=== PATIENT | female | born 1955 | race Caucasian/White ===

== ENCOUNTER 2023-04-07 21:38 | Emergency (ER) | payer BC, OTHER ==
--- OUTSIDE RECORDS SUMMARY | 2023-04-07 21:41 | XMS REPORT | Continuity of Care Document ---
:1955 Author Organization [facility] t Address [address] [place] [address] Care Team Providers Name Role Phone Unavailable Unavailable Unavailable Problems Condition Condition Condition Status Onset Resolution Last Treating Co mments Source Name Details Category Date Date Treatment Clinician Date Hyperlipid Hyperlipid Problem Active C ommon emia, emia, [facility] unspecifie unspecifie - [facility] hyperlipid hyperlipid Dhara ke emia type emia type [facility] Acquired Acquired Diagnosis Active Com mon hypothyroi hypothyroi Sp terell dism dism [facility] Stroke Stroke Problem Active Common [facility] History of History of Diagnosis Active Common CVA CVA [facility] (cerebrova (cerebrova - [facility] scular scular [facility] accident) accident) [facility] History of History of Problem Active C ommon CA CA [facility] (myocardia (myocardia - [facility] l [facility] infarction infarction [facility] ) ) [facility] Coronary Coronary Problem Active Commo n artery artery Spirit disease disease - [facility] involving involving [facility] coronary coronary Medica l artery of artery of Cent [facility] heart without without angina angina pectoris pectoris Heart Heart Problem Active Common disease disease [facility] High High Problem Active Common cholestero cholestero Sp terell l l - [place] [facility] Abnormal Abnormal Problem Active Commo n CBC CBC [facility] Mixed Mixed Diagnosis Active Common hyperlipid hyperlipid Sp terell emia emia [facility] Hyperglyce Hyperglyce Problem Active C ommon martínez martínez [facility] Uncontroll Uncontroll Diagnosis Active Common ed type 2 ed type 2 Spir it diabetes diabetes - CHI mellitus mellitus St with with [facility] hyperglyce hyperglyce Me dical [facility] Allergies, Adverse Reactions, Alerts Allergy Allergy Status Severity Reaction(s) Onset Inactive Treating Comm ents Source Name Type Date Date Clinician Hydrocod Adverse Active Info Not Commo n one-Acet Reaction Available Spi rit aminophe - [facility] n [facility] Medications Ordered Filled Start Stop Current Ordering Indication Dosage Frequency Signature Comments Components Source Medication Medication Date Date Medication? Clinician (SIG) Name Name Lancets Lancets Yes [facility] as Common - [facility] directed Spirit 00:00: (dispense - [facility] 00 lancets [facility] to Medical insurance) Center Glucose Glucose Yes [facility] as Common testing testing - [facility] directed Spirit strips strips 00:00: (dispense - CH I [address] [facility] to Center insurance) Blood Blood Yes [facility] as Common Glucose Glucose - [place]ender directed Spirit Monitor Monitor 00:00: (DISPENSE - [facility] 00 BLOOD GLUCOSE [facility] MONITOR [facility] TO INSURANCE) Levothyroxi Levothyroxi 2018- Yes Genesis 1 tablet Common ne Sodium ne Sodium 0-07 Millender on an Spirit 00:00: empty - [facility] stomach in [facility] Aspirin Aspirin Yes Genesis 1 tablet Comm on Millender [facility] Metoprolol Metoprolol Yes Genesis 1/2 tablet Common Tartrate [facility]artrate [facility] Flaxseed Flaxseed Yes Genesis as Common Oil Oil [facility] directed [facility] Atorvastati Atorvastati Yes Genesis 1 tablet Common n Calcium n Calcium [facility] Lisinopril Lisinopril Yes Genesis 1/2 tablet Common [facility] Clopidogrel Clopidogrel Yes Genesis 1 tablet Common Bisulfate Bisulfate [facility] Fish Oil Fish Oil Yes Genesis 2 capsules Common [facility] Immunizations Ordered Immunization Filled Immunization Date Status Commen ts Source Name Name Flucelvax - single Flucelvax - single 2019-07-29 Completed Common Spirit dose syringe dose syringe 00:00:00 [facility] Flucelvax Flucelvax 2018-07-24 Completed Common [facility] 00:00:00 [facility] Procedures This patient has no known procedures. Encounters Start End Encounter Admission Attending Care Care Encounter Source Date/Time Date/Time Type Type Clinicians Facility Department ID 2020-03-17 2020-03-17 [id number] Common 09:00:00 09:00:[address] [facility] 2020-01-09 2020-01-09 [facility] [id number] Common 13:43:00 13:43:[address] [facility] 2019-08-10 2019-08-10 [facility] [id number] Common 17:14:00 17:14:[address] [facility] 2019-07-29 2019-07-29 [facility] [id number] Common 08:40:00 08:40:[address] [facility] 2019-02-11 2019-02-11 [facility] [id number] Common 09:01:00 09:01:[address] [facility] 2019-02-07 2019-02-07 [facility] [id number] Common 08:20:00 08:20:[address] [facility] 2019-01-28 2019-01-28 [facility] [id number] Common 13:42:00 13:42:[address] [facility] 2019-01-21 2019-01-21 [facility] [id number] Common 08:20:00 08:20:[address] [facility] 2018-08-09 2018-08-09 [facility] [id number] Common 09:30:00 09:30:[address] [facility] 2018-07-27 2018-07-27 [facility] [id number] Common 23:33:00 23:33:[address] [facility] 2018-07-24 2018-07-24 Outpatient Clovis Dsouza [id number] Common 09:45:00 09:45:00 [facility] Results This patient has no known results.
[2023-04-07 22:23] LABS: Absolute Lymphocytes (CBC) 2.4 K/uL (0.7-4.9); Hematocrit 46.9 % (36.0-45.0); Lymphocytes % 36.8 % (15.3-44.8); MCV 89.7 fL (80-100); MPV 7.5 fL (7.6-11.3); RBC Red Blood Cell Count 5.23 M/uL (3.86-4.86)
[2023-04-07 22:24] LABS: Protime INR 0.89
[2023-04-07 22:53] LABS: ALT/SGPT 35 U/L (13-56); AST/SGOT 18 U/L (15-37); Albumin 3.5 g/dL (3.4-5.0); Alkaline Phosphatase 111 U/L (45-117); BUN Blood Urea Nitrogen 14 mg/dL (7-18); Bicarbonate 25 mEq/L (21-32); Bilirubin Total 0.4 mg/dL (0.2-1.0); Glomerular Filtration Rate 55 ml/min (=/>90); Glucose Level 282 mg/dL (74-106); Magnesium 2.2 mg/dL (1.6-2.4); NT PRO-BNP 54 pg/mL (<125); Potassium 3.7 mEq/L (3.5-5.1); Protein, Total 6.8 g/dL (6.4-8.2); Sodium Level 137 mEq/L (136-145); Troponin High Sensitivity 6.4 pg/mL (<58.9)
[2023-04-07 22:58] LABS: Bilirubin Direct < 0.1 mg/dL (0-0.2); Bilirubin Indirect, Calculated ND mg/dL (0.2-0.8)
--- NOTE | 2023-04-08 01:59 | EDPHYS ---
Physician Documentation [facility] Name: Janice Ryan Age: 67 yrs Sex: Female : 1955 Arrival Date: 04/07/2023 Time: 21:38 Bed 5 Private MD: ED Physician Darrian Salinas HPI: 04/07 22:04 This 67 yrs old Other Female presents to ER via Ambulatory with complaints of Chest sp4 Pain. 04/08 01:51 Very pleasant patient checked in with initial complaint of a chest pain. Patient is sp4 then communicated that she had left upper quadrant transient pain associated with some anxiety. Pain has resolved prior to arrival to the emergency room. Initial EKG unremarkable. Patient denied any other symptoms such as additional abdominal pain, shortness of breath or vomiting.. Patient has risk factors of type 2 diabetes mellitus, hypertensive disorder, hypothyroidism, also coronary artery disease with LAD stent in the past, History of CVA as well. Historical: - Allergies: 04/07 21:57 SHELLFISH; as6 21:57 Codeine; as6 - PMHx: 21:57 Hypothyroidism; Hypertensive disorder; as6 - PSHx: 21:57 Stented artery; section; as6 - Immunization history:: Client reports receiving the 2nd dose of the Covid vaccine, moderna. - Social history:: Smoking status: Patient denies any tobacco usage or history of. - Family history:: not pertinent. ROS: 04/08 01:51 Constitutional: Negative for fever, chills, and weight loss, Eyes: Negative for injury, sp4 pain, redness, and discharge, ENT: Negative for injury, pain, and discharge, Neck: Negative for injury, pain, and swelling, Cardiovascular: Negative for palpitations, and edema, positive for left lower chest pain Respiratory: Negative for shortness of breath, cough, wheezing, and pleuritic chest pain, Abdomen/GI: Negative for nausea, vomiting, diarrhea, and constipation, positive for left upper quadrant abdominal pain also left lower chest pain Back: Negative for injury and pain, : Negative for injury, bleeding, discharge, and swelling, MS/Extremity: Negative for injury and deformity, Skin: Negative for injury, rash, and discoloration, Neuro: Negative for headache, weakness, numbness, tingling, and seizure, Psych: Negative for depression, anxiety, Allergy/Immunology: Negative for hives, rash, and allergies Endocrine: Negative for neck swelling, polydipsia, polyuria, polyphagia, and weight changes Hematologic/Lymphatic: Negative for swollen nodes, abnormal bleeding, and unusual bruising Exam: 04/07 22:08 ECG was reviewed by the Attending Physician. 22:05 NSR at 73 bpm sp4 04/08 01:51 Constitutional: This is a well developed, well nourished patient who is awake, alert, sp4 and in no acute distress. Head/Face: Normocephalic, atraumatic. Eyes: Pupils equal round and reactive to light, extra-ocular motions intact. Lids and lashes normal. Conjunctiva and sclera are not injected. Cornea within normal limits. Periorbital areas with no swelling, redness, or edema. ENT: Nares patent. No nasal discharge, no septal abnormalities noted. Tympanic membranes are normal and external auditory canals are clear. Oropharynx with no redness, swelling, or masses, exudates, or evidence of obstruction, uvula midline. Mucous membranes moist. Neck: Trachea midline, no thyromegaly or masses palpated, and no cervical lymphadenopathy. Supple, full range of motion without nuchal rigidity, or vertebral point tenderness. Chest/axilla: Normal chest wall appearance and motion. Nontender with no deformity. No lesions are appreciated. Cardiovascular: Regular rate and rhythm with a normal S1 and S2. No gallops, murmurs, or rubs. Normal PMI, no JVD. No pulse deficits. Respiratory: Lungs have equal breath sounds bilaterally, clear to auscultation and percussion. No rales, rhonchi or wheezes noted. No increased work of breathing, no retractions or nasal flaring. Abdomen/GI: Soft, non-tender, with normal bowel sounds. No distension or tympany. No guarding or rebound. No evidence of tenderness throughout. Back: No spinal tenderness. No costovertebral tenderness. Skin: Warm, dry with normal turgor. Normal color with no rashes, no lesions, and no evidence of cellulitis. MS/ Extremity: Pulses equal, no cyanosis. Neurovascular intact. Full, normal range of motion. Neuro: Awake and alert, GCS 15, oriented to person, place, time, and situation. Cranial nerves II-XII grossly intact. Motor strength 5/5 in all extremities. Sensory grossly intact. Psych: Awake, alert, with orientation to person, place and time. Behavior, mood, and affect are within normal limits Vital Signs: 04/07 21:53 BP 157 / 92; Pulse 73; Resp 18 S; Temp 97.9(TE); Pulse Ox 100% on R/A; Weight 72.57 kg as6 (R); Height 5 ft. 6 in. (R); Pain 0/10; 23:30 BP 153 / 86; Pulse 64; Resp 16 S; Pulse Ox 100% on R/A; ha1 04/08 00:30 BP 155 / 87; Pulse 61; Resp 16 S; Pulse Ox 97% on R/A; ha1 01:30 BP 134 / 67; Pulse 60; Resp 16 S; Pulse Ox 97% on R/A; ha1 02:10 BP 131 / 85; Pulse 59; Resp 19 S; Pulse Ox 97% on R/A; ha1 04/07 21:53 Body Mass Index 25.82 (72.57 kg, 167.64 cm) as6 04/07 21:53 Pain Scale: Adult as6 MDM: 04/07 22:04 Patient medically screened. sp4 04/08 01:51 Differential diagnosis: abnormal EKG, acute pericarditis, anxiety, chest wall pain, sp4 cholecystitis, Cholelithiasis esophagitis, pleurisy, pneumonia. HEART Score: History: Slightly Suspicious (0), ECG: Normal (0), Age: > or = 65 years (2), Risk Factors: > or = 3 Risk factors for atherosclerotic disease (2), Troponin: < or = 1 x Normal Limit (0), Total Score = 4. The patient was not given aspirin in the Emergency Department. Patient reports taking aspirin within the past 24 hours. Data reviewed: vital signs, nurses notes, old medical records, lab test result(s), cardiac enzymes, CBC, electrolytes, hepatic panel, EKG, radiologic studies, plain films. ED course: Patient's pain resolved prior to arrival to the emergency room, patient does have significant risk factors and troponin was repeated and is negative. Overall work-up positive for elevated blood sugar at 282 otherwise normal work-up. Patient at this time stable for discharge with copies of her work-up. Advised follow-up with primary MD and diabetic diet. 04/07 21:58 Order name: Basic Metabolic Panel; Complete Time: 23:38 04/07 21:58 Order name: CBC with Diff; Complete Time: 23:38 04/07 21:58 Order name: LFT's; Complete Time: 23:38 04/07 21:58 Order name: Magnesium; Complete Time: 23:38 04/07 21:58 Order name: NT PRO-BNP; Complete Time: 23:38 04/07 21:58 Order name: PT-INR; Complete Time: 23:38 04/07 21:58 Order name: Troponin HS; Complete Time: 23:38 04/07 23:50 Order name: Troponin High Sensitivity: collect at 1:15 AM 04/08 please; Complete Time: sb4 01:44 04/07 21:58 Order name: XRAY Chest (1 view) 04/07 21:58 Order name: EKG; Complete Time: 21:59 04/07 21:58 Order name: Cardiac monitoring; Complete Time: 01:35 04/07 21:58 Order name: EKG - Nurse/Tech; Complete Time: 22:06 04/07 21:58 Order name: IV Saline Lock; Complete Time: 22:11 04/07 21:58 Order name: Labs collected and sent; Complete Time: 22:11 04/07 21:58 Order name: O2 Per Protocol; Complete Time: 01:35 04/07 21:58 Order name: O2 Sat Monitoring; Complete Time: 01:35 EC/16 22:08 Rate is 73 beats/min. Rhythm is regular, Normal Sinus Rhythm. QRS [place] is Normal. ND sp4 interval is normal. QRS interval is normal. QT interval is normal. T waves are Normal. No ST changes noted. Clinical impression: Normal ECG. Interpreted by me. Administered Medications: No medications were administered Disposition Summary: 04/08/23 01:58 Discharge Ordered Location: Home sp4 Problem: new sp4 Symptoms: are resolved sp4 Condition: Stable sp4 Diagnosis - Chest pain, unspecified sp4 - Noncardiac chest pain sp4 - Diabetes mellitus type 2 with elevated blood sugar sp4 Followup: sp4 - With: Private Physician - When: 7 - 10 days - Reason: Recheck today's complaints Discharge Instructions: - Discharge Summary Sheet sp4 - Nonspecific Chest Pain, Adult sp4 Signatures: Dispatcher [employer] Jamal Alcala RN RN as6 Darrian Salinas MD MD sp4
--- NOTE | 2023-04-08 01:59 | ER ---
Nurse's Notes [facility] Name: Janice Ryan Age: 67 yrs Sex: Female : 1955 Arrival Date: 04/07/2023 Time: 21:38 Bed 5 Private MD: Diagnosis: Chest pain, unspecified;Noncardiac chest pain;Diabetes mellitus type 2 with elevated blood sugar Presentation: 04/07 21:53 Chief complaint: Patient states: "my blood pressure was high at home and I had chest as6 pain" pt denies chest pain at this time. Coronavirus screen: At this time, the client does not indicate any symptoms associated with coronavirus-19. Ebola Screen: No symptoms or risks identified at this time. Initial Sepsis Screen: Does the patient meet any 2 criteria? No. Patient's initial sepsis screen is negative. Does the patient have a suspected source of infection? No. Patient's initial sepsis screen is negative. Risk Assessment: Do you want to hurt yourself or someone else? Patient reports no desire to harm self or others. Onset of symptoms was April 07, 2023. 21:53 Method Of Arrival: Ambulatory as6 21:53 Acuity: PAOLA 3 as6 Triage Assessment: 21:58 General: Appears in no apparent distress. Behavior is calm, cooperative. Pain: Denies as6 pain. Historical: - Allergies: 21:57 SHELLFISH; as6 21:57 Codeine; as6 - PMHx: 21:57 Hypothyroidism; Hypertensive disorder; as6 - PSHx: 21:57 Stented artery; section; as6 - Immunization history:: Client reports receiving the 2nd dose of the Covid vaccine, moderna. - Social history:: Smoking status: Patient denies any tobacco usage or history of. - Family history:: not pertinent. Screenin:[facility] ED Fall Risk Assessment (Adult) History of falling in the last 3 months, ha1 including since admission No falls in past 3 months (0 pts) Confusion or Disorientation No (0 pts) Intoxicated or Sedated No (0 pts) Impaired Gait No (0 pts) Mobility Assist Device Used No (0 pt) Altered Elimination No (0 pt) Score/Fall Risk Level 0 - 2 = Low Risk Oriented to surroundings, Maintained a safe environment, Educated pt \\T\\ family on fall prevention, incl call for assistance when getting out of bed. 04/08 00:11 Abuse screen: Denies threats or abuse. Denies injuries from another. Nutritional ha1 screening: No deficits noted. Tuberculosis screening: No symptoms or risk factors identified. Assessment: 04/07 23:30 General: Appears comfortable, Behavior is calm, cooperative. Pain: Denies pain. Neuro: ha1 Level of Consciousness is awake, alert, obeys commands, Oriented to person, place, time, situation. Cardiovascular: Reports Pt. states " I had chest pain early but not right now" Heart tones S1 S2 present Patient's skin is warm and dry. 23:30 Respiratory: Airway is patent Respiratory effort is even, unlabored, Respiratory ha1 pattern is regular, symmetrical. GI: Abdomen is round non-distended. : No signs and/or symptoms were reported regarding the genitourinary system. Derm: Skin is pink, warm \\T\\ dry. Musculoskeletal: Circulation, motion, and sensation intact. 23:30 Pain: Pain began suddenly. ha1 04/08 00:30 Reassessment: Patient and/or family updated on plan of care and expected duration. Pain ha1 level reassessed. Patient is alert, oriented x 3, equal unlabored respirations, skin warm/dry/pink. Patient denies pain at this time. Patient states feeling better. 01:30 Reassessment: Patient and/or family updated on plan of care and expected duration. Pain ha1 level reassessed. Patient is alert, oriented x 3, equal unlabored respirations, skin warm/dry/pink. Patient denies pain at this time. Patient states feeling better. Vital Signs: 04/07 21:53 BP 157 / 92; Pulse 73; Resp 18 S; Temp 97.9(TE); Pulse Ox 100% on R/A; Weight 72.57 kg as6 (R); Height 5 ft. 6 in. (R); Pain 0/10; 23:30 BP 153 / 86; Pulse 64; Resp 16 S; Pulse Ox 100% on R/A; ha1 17 00:30 BP 155 / 87; Pulse 61; Resp 16 S; Pulse Ox 97% on R/A; ha1 01:30 BP 134 / 67; Pulse 60; Resp 16 S; Pulse Ox 97% on R/A; ha1 02:10 BP 131 / 85; Pulse 59; Resp 19 S; Pulse Ox 97% on R/A; ha1 04/07 21:53 Body Mass Index 25.82 (72.57 kg, 167.64 cm) as6 04/07 21:53 Pain Scale: Adult as6 ED Course: 04/07 21:40 Patient arrived in ED. ag3 21:57 Triage completed. as6 21:58 Arm band placed on. as6 22:04 Darrian Salinas MD is Attending Physician. sp4 22:11 Inserted saline lock: 20 gauge in left antecubital area, using aseptic technique. Blood as6 collected. 22:36 XRAY Chest (1 view) In Process Unspecified. EDMS 23:30 Patient has correct armband on for positive identification. Placed in gown. Bed in low ha1 position. Call light in reach. Side rails up X 1. 23:30 Client placed on continuous cardiac and pulse oximetry monitoring. NIBP monitoring ha1 applied. 23:30 Patient maintains SpO2 saturation greater than 95% on room air. ha1 04/08 02:11 No provider procedures requiring assistance completed. IV discontinued, intact, ha1 bleeding controlled, No redness/swelling at site. Pressure dressing applied. Administered Medications: No medications were administered Medication: 02:12 VIS not applicable for this client. ha1 Outcome: 01:58 Discharge ordered by . sp4 02:12 Discharged to home ambulatory. ha1 02:12 Condition: stable 02:12 Discharge instructions given to patient, family, Instructed on discharge instructions, follow up and referral plans. Demonstrated understanding of instructions, follow-up care. 02:13 Patient left the ED. ha1 Signatures: Dispatcher [employer] EDMS Millie Richards ag3 Jamal Morgan RN RN as6 Rosalina Yancey RN RN ha1 Darrian Salinas MD MD sp4 Corrections: (The following items were deleted from the chart) 02:11 01:30 BP 131 / 85; Pulse 59bpm; Resp 19bpm; Spontaneous; Pulse Ox 97% RA; ha1 ha1
[2023-04-08 02:18] VITALS: TEMP 97.9
[2023-04-08 02:22] VITALS: O2SAT 97
[2023-04-08 02:25] VITALS: BP 131/85
--- NOTE | 2023-04-09 20:20 | RAD REPORT ---
EXAM DESCRIPTION: XR Chest, 1 View CLINICAL HISTORY: The patient is 67 years old and is Female; CHEST PAIN TECHNIQUE: Frontal view of the chest. COMPARISON: No relevant prior studies available. FINDINGS: LUNGS: Unremarkable. No consolidation. PLEURAL SPACE: Unremarkable. No pneumothorax. HEART: Unremarkable. No cardiomegaly. MEDIASTINUM: Unremarkable. BONES/JOINTS: Unremarkable. UPPER ABDOMEN: Unremarkable as visualized. IMPRESSION: No acute cardiopulmonary process. Electronically signed by: Rosemary White MD 04/07/2023 11:25 PM CDT Due to temporary technical issues with the PACS/Fluency reporting system, reports are being signed by the in house radiologists without review as a courtesy to insure prompt reporting. The interpreting radiologist is fully responsible for the content of the report.
--- NOTE | 2023-04-10 17:55 | EKG ---
Test Date: 2023-04-07 Test Time: 22:05:27 Fermentation Scientist: MEASUREMENT RESULTS: Intervals: Rate: 73 IL: 138 QRSD: 84 QT: 392 QTc: 431 Donnelly: P: 68 IL: 138 QRS: 53 T: 64 INTERPRETIVE STATEMENTS: Normal sinus rhythm Normal ECG Compared to ECG 06/15/2010 11:20:59 T-wave abnormality no longer present Prolonged QT interval no longer present Electronically Signed On 04-10-23 17:51:00 CDT by Toni Shetty
== END 2023-04-08 02:13 | disposition home or self-care (01) ==
LOC: ER 21:38
DX: R07.89 Other chest pain (principal); E11.65 Type 2 diabetes mellitus with hyperglycemia; I10 Essential (primary) hypertension; Z88.5 Allergy status to narcotic agent; Z91.013 Allergy to seafood; Z95.818 Presence of other cardiac implants and grafts
CPT/HCPCS: 36415; 71045; 80048; 80076; 83735; 83880; 84484; 85025; 85610; 93005; 99284